=== PATIENT | male | born 1985 | race Caucasian/White ===

== ENCOUNTER 2021-08-16 16:59 | Inpatient (IN) | payer OTHER ==
[2021-08-16 19:06] VITALS: BMI 20.7
[2021-08-16] MEDS ORDERED: MAGNESIUM HYDROX 2400MG/30ML ORAL SUSPENSION 30 ML CUP PO PRN (20:57)
[2021-08-16] MEDS ORDERED: ACETAMINOPHEN 325 MG TABLET (FP) PO PRN ×2 (20:57)
[2021-08-16] MEDS ORDERED: MENTHOL/PHENOL 1 EACH UD MM PRN (20:57)
[2021-08-16] MEDS ORDERED: NICOTINE POLACRILEX 2 MG GUM BUC PRN (20:57)
[2021-08-16] MEDS ORDERED: MAGNESIUM CITRATE 300 ML BOTTLE PO PRN (20:57)
[2021-08-16] MEDS ORDERED: ONDANSETRON *ODT* 4 MG TABLET SL PRN (20:57)
[2021-08-16] MEDS ORDERED: IBUPROFEN 400 MG TABLET (FP) PO PRN (20:57)
[2021-08-16] MEDS ORDERED: BISMUTH SUBSALICYLATE 524 MG/30 ML PO PRN (20:57)
[2021-08-16] MEDS ORDERED: MAG HYDROX/AL HYDROX/SIMETH 30 ML UNIT-DOSE CUP PO PRN (20:57)
[2021-08-17] MEDS ORDERED: METHOCARBAMOL 500 MG TABLET ONE (02:33)
[2021-08-17] MEDS ORDERED: IBUPROFEN 400 MG TABLET (FP) PO ONE (02:35)
[2021-08-17] MEDS: THIAMINE HCL 100 MG TABLET (FP) PO SCH ×2 (02:41→22:29)
[2021-08-17] MEDS: MELATONIN 5 MG TABLETS PO SCH ×2 (02:41→22:30)
[2021-08-17] MEDS: METHOCARBAMOL 500 MG TABLET PO PRN (02:42)
[2021-08-17] MEDS ORDERED: diazePAM 5 MG TABLET ONE ×2 (06:15→11:45)
[2021-08-17] MEDS: diazePAM 5 MG TABLET PO SCH ×4 (06:20→22:29)
[2021-08-17] MEDS: methaDONE HCL 40 MG DISPERSABLE TABLET PO SCH (10:05)
[2021-08-17 11:03] LABS: HEMATOCRIT 44.1 % (35.4-49); HEMOGLOBIN 14.6 GM/dL (11.7-16.9); MCH 30.3 pg (25.7-33.7); MCHC 33.1 g/dl (32.0-35.9); MEAN CELL VOLUME 91.7 fl (80-96); MEAN PLT VOLUME 7.2 fl (7.5-11.1); PLATELET COUNT 219 10^3/uL (134-434); RBC 4.81 M/mm3 (4.00-5.60); RDW 15.5 % (11.9-15.9); WHITE BLOOD COUNT 6.1 K/mm3 (4.0-10.0)
[2021-08-17 11:15] LABS: ALBUMIN 3.9 g/dl (3.4-5.0); BLOOD UREA NITROGEN 9.4 mg/dL (7-18); CALCIUM 9.3 mg/dL (8.5-10.1)
[2021-08-17 11:18] LABS: CREATININE 0.8 mg/dL (0.55-1.3)
[2021-08-17 11:20] LABS: BILIRUBIN,TOTAL 0.8 mg/dL (0.2-1); TOT PROT 6.8 g/dl (6.4-8.2)
[2021-08-17] MEDS: NICOTINE 14 MG/24 HOURS TOPICAL PATCH TD SCH (13:41)
[2021-08-17] MEDS: PRENATAL VITAMINS W/ FOLIC ACID TABLET (FP) PO SCH (13:41)
[2021-08-18] MEDS: diazePAM 5 MG TABLET PO SCH ×3 (05:40→21:51)
[2021-08-18] MEDS: methaDONE HCL 40 MG DISPERSABLE TABLET PO SCH (05:40)
[2021-08-18] MEDS: NICOTINE 14 MG/24 HOURS TOPICAL PATCH TD SCH (12:31)
[2021-08-18] MEDS: PRENATAL VITAMINS W/ FOLIC ACID TABLET (FP) PO SCH (12:32)
[2021-08-18] MEDS: diazePAM 5 MG TABLET PO PRN (17:53)
[2021-08-18] MEDS: MELATONIN 5 MG TABLETS PO SCH (21:51)
[2021-08-18] MEDS: METHOCARBAMOL 500 MG TABLET PO PRN (21:52)
[2021-08-18] MEDS: THIAMINE HCL 100 MG TABLET (FP) PO SCH (21:52)
[2021-08-18] MEDS: NICOTINE 10 MG CARTRIDGE (INHALER) IH PRN (21:53)
[2021-08-19] MEDS: methaDONE HCL 40 MG DISPERSABLE TABLET PO SCH (05:39)
[2021-08-19] MEDS: diazePAM 5 MG TABLET PO SCH ×2 (05:40→18:00)
[2021-08-19] MEDS: NICOTINE 10 MG CARTRIDGE (INHALER) IH PRN (06:20)
[2021-08-19] MEDS: diazePAM 5 MG TABLET PO PRN ×2 (07:49→22:31)
[2021-08-19] MEDS: NICOTINE 14 MG/24 HOURS TOPICAL PATCH TD SCH (10:31)
[2021-08-19] MEDS: PRENATAL VITAMINS W/ FOLIC ACID TABLET (FP) PO SCH (10:32)
[2021-08-19] MEDS: THIAMINE HCL 100 MG TABLET (FP) PO SCH (22:30)
[2021-08-19] MEDS: MELATONIN 5 MG TABLETS PO SCH (22:31)
[2021-08-20] MEDS: methaDONE HCL 40 MG DISPERSABLE TABLET PO SCH (05:58)
[2021-08-20] MEDS ORDERED: diazePAM 5 MG TABLET PO ONE (06:00)
[2021-08-20] MEDS: NICOTINE 10 MG CARTRIDGE (INHALER) IH PRN (06:09)
[2021-08-20 09:00] VITALS: BP 122/62; PULSE 96; TEMP 96.8
[2021-08-20] MEDS: NICOTINE 14 MG/24 HOURS TOPICAL PATCH TD SCH (10:37)
[2021-08-20] MEDS: PRENATAL VITAMINS W/ FOLIC ACID TABLET (FP) PO SCH (10:37)
== END 2021-08-20 10:01 | disposition home or self-care (01) | DRG 773 ==
LOC: YASAS 16:59 → Y3N 08-17 09:56 → Y6N 08-17 12:07
PROVIDERS: ADMIT Allergy & Immunology; ATTEND Allergy & Immunology
PROC: HZ2ZZZZ Detoxification Services for Substance Abuse Treatment (ICD-10-PCS; principal; 2021-08-17)
DX: F10.230 Alcohol dependence with withdrawal, uncomplicated (principal); F11.20 Opioid dependence, uncomplicated; F13.20 Sedative, hypnotic or anxiolytic dependence, uncomplicated; F14.23 Cocaine dependence with withdrawal; F17.210 Nicotine dependence, cigarettes, uncomplicated; F19.280 Other psychoactive substance dependence with psychoactive substance-induced anxiety disorder; F19.24 Other psychoactive substance dependence with psychoactive substance-induced mood disorder; F41.9 Anxiety disorder, unspecified; F32.A Depression, unspecified; F90.9 Attention-deficit hyperactivity disorder, unspecified type; Z20.822 Contact with and (suspected) exposure to COVID-19; Z86.11 Personal history of tuberculosis
CPT/HCPCS: 36415; 71046-TC-FY; 80053; 85027; 86780; 93005; 93010; C9803-CS; U0003; U0005